=== PATIENT | male | born 1945 | race Caucasian/White ===

== ENCOUNTER 2018-08-23 19:45 | Inpatient (IN) ==
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
[2018-08-24 01:53] LABS: Baso % (Auto) 0.3 % (0.0-2.0); Eos # (Auto) 0.1 th/mm3 (0.0-0.4); Hematocrit 41.9 % (39.0-51.0); Hemoglobin 13.5 gm/dL (13.0-17.0); Lymph # (Auto) 2.5 th/mm3 (1.0-4.8); Mean Corpuscular HGB Conc 32.3 % (32.0-36.0); Mean Corpuscular Hemoglobin 26.1 pg (27.0-34.0); Mean Corpuscular Volume 80.8 fL (80.0-100.0); Mean Platelet Volume 6.9 fL (7.0-11.0); Mono # (Auto) 0.8 th/mm3 (0.0-0.9); Mono % (Auto) 7.8 % (0.0-8.0); Neut # (Auto) 7.1 th/mm3 (1.8-7.7); Neut % (Auto) 66.9 % (16.0-70.0); Platelet Count 405 th/mm3 (150-450); Red Blood Count 5.19 mil/mm3 (4.50-5.90); Red Cell Distribution Width 17.1 % (11.6-17.2); White Blood Count 10.6 th/mm3 (4.0-11.0)
[2018-08-24 01:57] LABS: Bilirubin,Urine Negative (Negative); Clarity,Urine Hazy (Clear); Color,Urine Yellow (Yellw/Straw); Glucose,Urine (UA) 500 or Greater mg/dL (Negative); Leukocyte Esterase,Urine Negative (Negative); Mucus,Urine Few /lpf (Occasional); Nitrite,Urine Negative (Negative); Specific Gravity,Urine 1.028 (1.002-1.035)
[2018-08-24 02:05] LABS: Activated Partial Thrombo Time 27.8 sec (23.4-31.7); INR 1.1 Ratio; Prothrombin Time 10.8 sec (9.8-11.6)
[2018-08-24 02:16] LABS: Alanine Aminotransferase 28 U/L (12-78); Alkaline Phosphatase 83 U/L (45-117); Total Protein 8.6 g/dL (6.4-8.2)
[2018-08-24 02:17] LABS: Anion Gap 9 meq/L (5-15); Aspartate Aminotransferase 38 U/L (15-37); Blood Urea Nitrogen 19 mg/dL (7-18); Calcium 9.7 mg/dL (8.5-10.1); Carbon Dioxide 24.7 meq/L (21.0-32.0); Chloride 104 meq/L (98-107); Glomerular Filtration Rate 57 mL/min (>89); Glucose,Random 161 mg/dL (74-106); Potassium 4.8 meq/L (3.5-5.1); Sodium 138 meq/L (136-145)
[2018-08-24] MEDS ORDERED: Bisacodyl 10 MG Supp RECTAL PRN (03:39)
[2018-08-24] MEDS ORDERED: Acetaminophen 325 MG Tablet PO PRN (03:39)
[2018-08-24] MEDS ORDERED: Dextrose 50% in Water 50 ML Vial IV.PUSH PRN (03:43)
[2018-08-24] MEDS ORDERED: Sod Chloride 0.9% Inj 1,000 ML IV.CONT SCH (03:45)
[2018-08-24] MEDS ORDERED: Sodium Chloride 0.9% 2 ML Flush PRN IV.FLUSH (04:25)
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
[2018-08-24] MEDS ORDERED: Zolpidem Tartrate 5 MG Tablet PO PRN (05:32)
[2018-08-24] MEDS: Morphine Sulfate Inj 2 MG/ML Vial IV.PUSH PRN ×4 (06:36→22:41)
[2018-08-24] MEDS: Sodium Chloride 0.9% 2 ML Flush BID IV.FLUSH SCH ×2 (09:40→22:42)
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
[2018-08-24] MEDS: Insulin NovoLOG Aspart Correctional Sugar Inj SQ SCH ×2 (13:08→20:46)
--- NOTE | 2018-08-24 14:40 | ECG ---
Date Performed: 08/24/2018 Time Performed: 01:16:43 PTAGE: 73 years EKG: Sinus rhythm PATTERN CONSISTENT WITH PULMONARY DISEASE LEFT ANTERIOR FASCICULAR BLOCK NONSPECIFIC ST & T-WAVE ABN ORMALITY ABNORMAL ECG NO PREVIOUS TRACING DOCTOR: Susana Kauffman Interpretating Date/Time 08/24/2018 14:30:51
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
[2018-08-24] MEDS ORDERED: Bupivacaine/Epinephrine Inj 0.25% 50 ML Vial ONE (16:20)
[2018-08-24] MEDS ORDERED: Ketorolac Inj 30 MG/ML (IVP) Vial IV.PUSH ONE (16:37)
[2018-08-24] MEDS ORDERED: Bupivacaine 0.25% Inj 50 ML MDV Vial ONE (16:44)
[2018-08-24] MEDS: Lidocaine 1% Inj 50 ML Vial ONE ×2 (17:00→17:16)
[2018-08-24] MEDS ORDERED: fentaNYL Citrate Inj 100 MCG/2 ML Ampul ONE (17:47)
--- NOTE | 2018-08-24 17:49 | P.BOP ---
- Preoperative Diagnosis (1) Lisfranc fracture - Postoperative Diagnosis (1) Lisfranc fracture Date of procedure: 08/24/18 Procedure: ORIF of the left 2nd metatarsal. Implants: See log Anesthesia: GETA Surgeon: Kassi Stratton DPM Estimated blood loss (mL): 5 Tourniquet time (min): 0 (Left ankle tourniquet never inflated) Pathology: none sent Condition: stable Disposition: PACU
--- NOTE | 2018-08-24 18:27 | XR ---
EXAM DATE: 08/24/2018 6:11 PM EST AGE/SEX: 73 years / Male INDICATIONS: Post-op right foot. CLINICAL DATA: This is the patient's initial encounter. Patient reports that signs and symptoms have been present for 1 day and indicates a pain score of Nonresponsive. MEDICAL/SURGICAL HISTORY: . Cardiovascular disease. Hypertension. Diabetes mellitus type II. To nsillectomy. . Stents. [place] [facility] [place]. . FINDINGS: 3 views are performed in a fiberglass splint. Internal fixation pin traverses the proximal second met atarsal bone traversing into the tarsonavicular. Bony structures are in normal alignment. There is an atomic alignment of the proximal second metatarsal fracture. CONCLUSION: Internal fixation with normal alignment of the second metatarsal fracture. Electronically signed by: Addy Mcallister MD 08/24/2018 6:26 PM EST
--- NOTE | 2018-08-24 19:45 | XR ---
EXAM DATE: 08/24/2018 7:37 PM EST AGE/SEX: 73 years / Male INDICATIONS: Foot pinning. CLINICAL DATA: This is the patient's initial encounter. Patient reports that signs and symptoms have been present for 1 day and indicates a pain score of Nonresponsive. MEDICAL/SURGICAL HISTORY: Non-responsive. Non-responsive. COMPARISON: [facility] [place]TE LEFT 3V, 08/23/2018. . FINDINGS: 2 images are recorded digitally in the operating room using C-arm during placement of external fixati on pin in the second digit and midfoot. CONCLUSION: Intraoperative images. Electronically signed by: Addy Mcallister MD 08/24/2018 7:43 PM EST
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
[2018-08-25] MEDS: Morphine Sulfate Inj 2 MG/ML Vial IV.PUSH PRN (01:55)
[2018-08-25] MEDS: Insulin NovoLOG Aspart Correctional Sugar Inj SQ SCH ×2 (07:41→12:12)
[2018-08-25 08:08] LABS: Baso % (Auto) 0.4 % (0.0-2.0); Eos # (Auto) 0.1 th/mm3 (0.0-0.4); Eos % (Auto) 1.5 % (0.0-4.0); Hematocrit 37.4 % (39.0-51.0); Hemoglobin 12.1 gm/dL (13.0-17.0); Lymph # (Auto) 1.8 th/mm3 (1.0-4.8); Lymph % (Auto) 21.5 % (9.0-44.0); Mean Corpuscular HGB Conc 32.4 % (32.0-36.0); Mean Corpuscular Hemoglobin 26.8 pg (27.0-34.0); Mean Corpuscular Volume 82.7 fL (80.0-100.0); Mean Platelet Volume 7.2 fL (7.0-11.0); Mono # (Auto) 0.7 th/mm3 (0.0-0.9); Mono % (Auto) 8.6 % (0.0-8.0); Neut # (Auto) 5.8 th/mm3 (1.8-7.7); Platelet Count 347 th/mm3 (150-450); Red Blood Count 4.52 mil/mm3 (4.50-5.90); Red Cell Distribution Width 17.1 % (11.6-17.2); White Blood Count 8.5 th/mm3 (4.0-11.0)
[2018-08-25 08:31] VITALS: RESP 20; O2SAT 96
[2018-08-25 08:51] LABS: Calcium 8.8 mg/dL (8.5-10.1); Carbon Dioxide 25.3 meq/L (21.0-32.0); Potassium 4.5 meq/L (3.5-5.1)
[2018-08-25] MEDS: Sodium Chloride 0.9% 2 ML Flush BID IV.FLUSH SCH (09:58)
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
[2018-08-25 12:40] VITALS: BP 165/76; PULSE 79; TEMP 98.5
--- NOTE | 2018-08-25 13:04 | P.DCO ---
- Diagnosis (1) Hypertension Status: Acute (2) CAD (coronary artery disease) Status: Acute (3) Diabetes Status: Acute (4) Lisfranc fracture Status: Acute - Physical Therapy Order: Evaluate and treat, Improve ambulation, Strength and gait training - Home Health Nursing Order: Medical education, Nursing assessment with vital signs - Case Management Consult Case Management Consult-Home Health: Yes - Certification I have seen patient Terrell Dejesus II on 08/25/18. My clinical findings support the need for the requested home health care services because: Limited ability to care for self, High risk of falls I certify that my clinical findings support that this patient is homebound because: Unsteady gait/balance, Unsafe to leave home unassisted, Unable to use public transportation
== END 2018-08-25 15:54 | disposition home health service (06) | DRG 505 ==
LOC: NEPB 19:45 → NEDA 08-24 00:10 → N06 08-24 02:20
PROVIDERS: ADMIT Internal Medicine; ATTEND Internal Medicine
CPT/HCPCS: 29515; 73620; 73630; 73700; 76000; 80048; 80053; 81001; 82948; 82962; 85025; 85610; 85730; 93005; 97163; 99285; C1713; C1776; J0690; J1580; J1815; J1885; J2250; J2270; J2405; J2704; J3010; J7030